=== PATIENT | female | born 1960 | race Caucasian/White ===

== ENCOUNTER 2019-12-25 13:44 | Emergency (ER) | payer MEDICAID, SELFPAY ==
[2019-12-25 13:51] VITALS: BP 123/82; PULSE 78; RESP 16; TEMP 36.7; O2SAT 99
--- NOTE | 2019-12-25 13:56 | DI.RAD.S_ITS ---
PROCEDURE: XR TIBIA FIBULA RT 2V INDICATIONS: deep laceration during a fall TECHNIQUE: 2 views of the tibia and fibula were acquired. COMPARISON: None. FINDINGS: Bones: No fractures or dislocations. No suspicious bony lesions. Soft tissues: Soft tissue laceration overlies the lateral aspect of the fofana. No unexpected radiopaque foreign bodies. IMPRESSION: Soft tissue laceration without under lying bony abnormality or unexpected radiopaque foreign bodies. Dictated by: Yuko Moser M.D. on 12/25/2019 at 13:16 Approved by: Yuko Moser M.D. on 12/25/2019 at 13:17
--- NOTE | 2019-12-25 14:01 | ED.LOWEXIN ---
HPI - Extremity Injury (Lower) <BOBBY TriplettP - Last Filed: 12/25/19 19:25> General Chief Complaint: Extremity Injury, Lower Stated Complaint: Lt leg trauma/ bleeding Time Seen by Provider: 12/25/19 13:47 Source: patient Mode of arrival: Wheelchair Limitations: no limitations History of Present Illness HPI Narrative: This is a 59 year female, nonsmoker, who has noncontributing medical history presents to ED with left lower leg injury with a flap appearing deep laceration and a puncture like wound when she fell off of a dumpster. Patient reports she fell off of the side of the dumpster accidentally fell in between a wall and a dumpster about 2 feet down and hit her head on a soft punching bag. She is unsure of last tetanus immunization. She denies losing consciousness, vomiting, vision change, neck pain and reports is able to move upper extremities without difficulty and has intact sensation. Patient is currently visiting sister from out of town. Patient reports intact sensation and is able to move her toes and able to bear weight. Related Data Home Medications Medication Instructions Recorded Confirmed No Known Home Medications 12/25/19 12/25/19 Allergies Allergy/AdvReac Type Severity Reaction Status Date / Time No Known Drug Allergies Allergy Verified 12/25/19 13:59 Review of Systems <[facility] Last Filed: 12/25/19 19:25> Review of Systems Narrative: General: Denies fever, chills, fatigue, malaise, sweats. HEENT: Denies sinus pain, ear pain, sore throat, difficulty swallowing, dizziness. Respiratory: Denies dyspnea, cough, wheezing, hemoptysis, sputum. Cardiovascular: Denies chest pain, palpitations, orthopnea, edema. Gastrointestinal: Denies nausea, vomiting, abdominal pain, diarrhea, constipation, melena. : Denies dysuria, frequency, incontinence, hematuria, urinary retention. Musculoskeletal: The atria Skin: HPI Neurologic: Denies weakness, headache, numbness, change in speech, confusion, seizures, incoordination. Psychiatric: No concerning psychosocial issues. 12-point review of systems is negative except for those stated above. Patient History <[facility] Last Filed: 12/25/19 19:25> Surgical History (Updated 12/25/19 @ 14:05 by CYNTHIA Triplett) History of hysterectomy (Acute) Social History (Updated 12/25/19 @ 14:05 by CYNTHIA Triplett) Smoking Status: Never smoker alcohol intake: current Smoking Status: Never smoker Substance Use Type: does not use Exam <CYNTHIA Triplett - Last Filed: 12/25/19 19:25> Narrative Exam Narrative: GEN: Alert, oriented x 3, well appearing and nourished, and in no acute distress. Head: Normal cephalic, atraumatic. No scalp or temporal tenderness, palpable mass or rash. EYES: Pupils are equal, round, and reactive to light and accommodation. Extraocular muscles are intact bilaterally. There is no subconjunctival hemorrhage, exudate and sclera non-icteric. ENT: Hearing grossly intact. Nose without bleeding, purulent discharge or deviation. Airway patent. Neck: Trachea in midline. No JVD, non-tender without lymphadenopathy. No masses or thyroid megaly. Supple, no mid cervical tenderness and no meningeal signs. CARDIAC: Normal regular rate and rhythm without murmurs, gallops, or rubs. No chest wall tenderness. No peripheral edema, cyanosis or pallor. Capillary refill is less than 2 seconds. RESPIRATORY: Lungs are clear to auscultate bilaterally. No cough, wheezes, rales, or rhonchi. No stridor, respiratory distress, increase work of breathing, or accessary muscle used. ABD: Abdomen soft, nontender and non-distended. No guarding or rebound tenderness to palpate. Bowel sounds are normal in all 4 quadrants. There is no palpable masses or organomegaly. EXT: Full painless ROM of all extremities with no loss of sensation, strength, effusion or edema. SKIN: Deep flap like laceration in distal left lower leg approximately 3.5 and 4 cm on each side. 1.5 cm linear laceration to proximal left lower leg. No active bleeding. BACK: Nontender without deformity or crepitance. No flank tenderness. NEUROLOGICAL: Alert and oriented to place, time and person. Sensation and motor function intact bilaterally. No facial droops, dysphasia. PSYCHIATRIC: Good judgement and reason, without hallucinations, abnormal affect or abnormal behaviors during the examination. Patient is not suicidal. Initial Vital Signs Initial Vital Signs: Vital Signs Temperature 98.1 F 12/25/19 13:51 Pulse Rate 78 12/25/19 13:51 Respiratory Rate 16 12/25/19 13:51 Blood Pressure 123/82 12/25/19 13:51 Pulse Oximetry 99 12/25/19 13:51 <Maris Britt DO - Last Filed: 12/28/19 07:36> Initial Vital Signs Initial Vital Signs: Vital Signs Temperature 98.1 F 12/25/19 13:51 Pulse Rate 78 12/25/19 13:51 Respiratory Rate 16 12/25/19 13:51 Blood Pressure 123/82 12/25/19 13:51 Pulse Oximetry 99 12/25/19 13:51 Procedures <Kern ValleyBOBBY RosadoP - Last Filed: 12/25/19 19:25> Laceration Repair Laceration 1: Site: lower extremity (anterior leg) Side (If applicable): left Size (cm): 4 Description: flap and contaminated Depth: simple, single layer Local Anesthetic: lidocaine 2%, with epi and with bicarb Amount of anesthesia used (mL): 7 Pre-repair: wound explored and irrigated extensively Skin layer closed with: nylon Size (cm): 4-0 Number of sutures: 7 Technique: simple, interrupted and other (corner dog ear stitch) Laceration 2: Site: lower extremity (fofana) Size (cm): 1.5 Description: linear Depth: simple, single layer Local Anesthetic: lidocaine 2%, with epi and with bicarb Amount of anesthesia used (mL): 2 Scores <BOBBY TriplettP - Last Filed: 12/25/19 19:25> GCS Radha coma scale eye opening: Spontaneous [place] coma scale verbal response: Orientated Radha coma scale motor response: Obey commands Radha coma scale total score: 15 Nexus Score for C-Spine Focal Neurologic deficit present: No Midline spinal tenderness present: No Altered level of conciousness present: No Intoxication present: No Distracting Injury Present: No Nexus Criteria for C-spine: 0 Course <BOBBY TriplettP - Last Filed: 12/25/19 19:25> Orders Ordered: Discontinued Medications Bacitracin (Bacitracin) 3 applic TOP NOW ONE Stop: 12/25/19 13:59 Last Admin: 12/25/19 14:07 Dose: 3 applic Documented by: ANMOL Diphtheria/Tetanus/Acell Pertussis (Adacel) 0.5 ml IM .ONCE ONE Stop: 12/25/19 13:57 Last Admin: 12/25/19 14:06 Dose: 0.5 ml Documented by: ANMOL Lidocaine/Epinephrine (Xylocaine 2% W/Epi) 20 ml INJ INTRA-OP ONE Stop: 12/25/19 13:59 Last Admin: 12/25/19 14:06 Dose: 20 ml Documented by: ANMOL Lidocaine/Sodium Bicarbonate (Buffered Lidocaine 10 Ml Syr) 10 ml INJ NOW ONE Stop: 12/25/19 13:59 Last Admin: 12/25/19 14:07 Dose: 10 ml Documented by: ANMOL Vital Signs Vital signs: Vital Signs - 8 hr 12/25/19 13:51 12/25/19 15:51 Temperature 98.1 F Pulse Rate 78 67 Respiratory Rate 16 21 Blood Pressure 123/82 112/64 Pulse Oximetry 99 97 <Maris Britt DO - Last Filed: 12/28/19 07:36> Orders Ordered: Discontinued Medications Bacitracin (Bacitracin) 3 applic TOP NOW ONE Stop: 12/25/19 13:59 Last Admin: 12/25/19 14:07 Dose: 3 applic Documented by: ANMOL Diphtheria/Tetanus/Acell Pertussis (Adacel) 0.5 ml IM .ONCE ONE Stop: 12/25/19 13:57 Last Admin: 12/25/19 14:06 Dose: 0.5 ml Documented by: ANMOL Lidocaine/Epinephrine (Xylocaine 2% W/Epi) 20 ml INJ INTRA-OP ONE Stop: 12/25/19 13:59 Last Admin: 12/25/19 14:06 Dose: 20 ml Documented by: ANMOL Lidocaine/Sodium Bicarbonate (Buffered Lidocaine 10 Ml Syr) 10 ml INJ NOW ONE Stop: 12/25/19 13:59 Last Admin: 12/25/19 14:07 Dose: 10 ml Documented by: ANMOL Vital Signs Vital signs: Vital Signs - 8 hr 12/25/19 13:51 12/25/19 15:51 Temperature 98.1 F Pulse Rate 78 67 Respiratory Rate 16 21 Blood Pressure 123/82 112/64 Pulse Oximetry 99 97 MDM - Extremity Injury (Lower) <CYNTHIA Triplett - Last Filed: 12/25/19 19:25> Differential Diagnosis Differential diagnosis: Likely other (Tibia fracture, laceration on lower extremity, foreign body, closed head injury, contusion to leg) Medical Records Attestation: I reviewed the patient's medical records. Imaging Data XR-Tib/Fib LT: Radiologist's Impression: [address] [address] XRay Report Signed Patient: Brittany Miranda JMR#: [id number] : 1960Acct:[id number] Age/Sex: 59 / FDate of Service: 12/25/19 Loc: ED Accession Number: [id number] Procedure: XR tibia fibula LT 2V Ordering Provider: Micheal Ulrich PROCEDURE: XR TIBIA FIBULA RT 2V INDICATIONS: deep laceration during a fall TECHNIQUE: 2 views of the tibia and fibula were acquired. COMPARISON: None. FINDINGS: Bones: No fractures or dislocations. No suspicious bony lesions. Soft tissues: Soft tissue laceration overlies the lateral aspect of the fofana. No unexpected radiopaque foreign bodies. IMPRESSION: Soft tissue laceration without under lying bony abnormality or unexpected radiopaque foreign bodies. Dictated by: Yuko Moser M.D. on 12/25/2019 at 13:16 Approved by: Yuko Moser M.D. on 12/25/2019 at 13:17 MDM Narrative Medical decision making narrative: This is a 59 year female who presents to ED with a deep flap like laceration and a small linear laceration to left anterior lower leg after she fell off a dumpster 2 feet above and landed on soft punching bag. No focal neurological deficit. Patient denies losing consciousness, mid cervical tenderness, or other neurological deficit. X-ray test on left lower leg does not indicate fractures, radial plaque foreign bodies, or dislocations. Two laceration has been repaired with sutures. Please see procedure note and patient tolerated procedure well. We discussed wound care at home, wound recheck in 2 days, and suture removal as well as closed head injury return precautions with patient and sister and they both verbalized understanding in agreement with the treatment plan. Discharge Plan Departure Patient Disposition: Home Clinical Impression: Laceration Contusion Qualifiers: Encounter type: initial encounter Contusion area: lower leg Laterality: left Qualified Code(s): S80.12XA - Contusion of left lower leg, initial encounter CHI (closed head injury) Qualifiers: Encounter type: initial encounter Qualified Code(s): S09.90XA - Unspecified injury of head, initial encounter Fall Qualifiers: Encounter type: initial encounter Qualified Code(s): W19.XXXA - Unspecified fall, initial encounter Discharge Date/Time: 12/25/19 15:53 Instructions: DI for Laceration Repair -- Complex, DI for Contusion, DI for Closed Head Injury Activity Restrictions/Additional Instructions: You have been diagnosed with [complex laceration on left fofana repair with sutures in 2 areas. Deep laceration repaired with 7 sutures with corner stitch in distal leg and 2 simple interrupted sutures on proximal fofana, contusion, close head injury from a fall]. What to do: *Take your medications as directed. You can take [id number] Tylenol and or Motrin as needed for discomfort. You have received Tdap vaccination today and this will be good for next 5-10 years. Please do not get your wound soaked in the water until suture removal. Keep your dressing intact for next 24 hrs. After then, you could remove your dressing, wash with soap and water. Pat dry with clean paper towel and dress it with antibiotic ointment. You can change dressing as needed and daily. Please monitor for signs and symptoms for infection such as increasing redness, swelling, warmth, pain, fever, purulent discharge. If this occurs, please return to ED or follow up with your primary care physician since your wound may be gotten infected. Please follow up with your primary care provider in 2-3 days for recheck wound. Your suture should be removed [ 7-10 ] days. This can be done by your primary provider, walk-in clinic or here in ED. Please keep your wound clean, dry and intact all times. *Return to ED if you have any new, worsening, or concerning symptoms, such as [chest pain, breathing difficulty, severe headache, vomiting, vision change, seizure activities, signs of infection on your wound or any acute concerns]. Prescriptions: No Action No Known Home Medications RF: 0 <Maris Britt DO - Last Filed: 12/28/19 07:36> Cosign ED Attending Lulu Attestation: I was immediately available in the department for consultation. Documentation has been reviewed. I agree with assessment and plan.
[2019-12-25] MEDS: LIDOCAINE 2% W/EPI INJ 20 ML INJ (14:06)
[2019-12-25] MEDS: TET,DIPH,PERTUSS(ACELL),VAC/PF 0.5 ML SYRINGE IM (14:06)
[2019-12-25] MEDS: LIDO 1%/SOD BICARB 8.4% (10ML) 10 ML SYRINGE INJ (14:07)
[2019-12-25] MEDS: BACITRACIN OINT 0.9 GM PCKT 3 APPLIC TOP (14:07)
[2019-12-25 15:51] VITALS: BP 112/64; PULSE 67; RESP 21; O2SAT 97
== END 2019-12-25 15:53 | disposition home or self-care (01) ==
PROVIDERS: Emergency Provider Nurse Practitioner Family
DX: S81.812A Laceration without foreign body, left lower leg, initial encounter (principal); S80.12XA Contusion of left lower leg, initial encounter; S09.90XA Unspecified injury of head, initial encounter; W19.XXXA Unspecified fall, initial encounter; Z23 Encounter for immunization
CPT/HCPCS: 12002; 73590; 90471; 99283; 90715